=== PATIENT | female | born 1995 | race Caucasian/White ===

== ENCOUNTER → 2019-08-07 10:21 | Outpatient (CLI) | payer BC, SELFPAY ==
[2019-08-07 12:02] LABS: Absolute Lymphocyte Count 1.78 X10^3/uL (0.83-4.51); Absolute Neutrophil Count 4.6 X10^3/uL (2.0-7.7); Basophil# 0.02 X10^3/uL; Basophil% 0.3 % (0-1); Eosinophil# 0.11 X10^3/uL; Eosinophils% 1.6 % (0-5); Hematocrit 39.5 % (37-47); Hemoglobin 12.7 g/dL (12.0-15.0); Lymphocyte # 1.78 X10^3/ul (4.0); Lymphocyte % 25.4 % (19-41); Mean Corp Hgb Conc 32.2 g/dL (32-36); Mean Corpuscular Hgb 28.2 pg (27.0-32.0); Mean Corpuscular Volume 87.8 fL (81-99); Mean Platelet Vol. 12.6 fl (6.2-12.0); Monocyte# 0.45 X10^3/uL; Monocyte% 6.4 % (0-10); NRBC Flagged by Analyzer 0 % (0-5); Neutrophil # 4.63 X10^3/uL (2.7-7.7); Platelet Count 274 K/mm3 (150-450); RBC Distribution Width CV 13.2 % (11.6-14.6); RBC Distribution Width SD 42.7 fl (35.1-43.9)
[2019-08-07 13:56] LABS: HIV - WCH Non-Reactive (Nonreactive); Hepatitis B Surface Antigen Non-Reactive (Nonreactive); Hepatitis C Antibody Non-Reactive (Nonreactive); Rubella IgG 83.8 IU/mL
[2019-08-14 02:23] LABS: Rapid Plasmin Reagin (RPR) NONREACTIVE (NONREACTIVE)
== END ==
LOC: LAB.FUTURE 10:27 → LAB 10:32
PROVIDERS: Referring Provider Obstetrics & Gynecology; Visit Provider Obstetrics & Gynecology
DX: Z34.01 Encounter for supervision of normal first pregnancy, first trimester (principal)
CPT/HCPCS: 36415; 85025; 86592; 86703; 86762; 86803; 86850; 86900; 86901; 87340

== ENCOUNTER → 2019-08-09 11:00 | Outpatient (CLI) | payer BC, SELFPAY ==
--- NOTE | 2019-08-09 10:32 | US_ITS ---
STUDY: FIRST TRIMESTER OBSTETRICAL ULTRASOUND REASON FOR EXAM: Female, 23 years old VAGINAL BLEEDING WITH CLOTS WITH X 1 DAY -- PATIENT STATES SHE HAD AN ULTRASOUND DONE AT [facility] ON SUNDAY THAT SHOWED A 7 WEEK WITH A HEARTBEAT LMP: 08/10/2019 TECHNIQUE: Transvaginal TECHNICAL QUALITY: Adequate. PRIOR ULTRASOUND: None. FINDINGS: There is no demonstrated intrauterine gestational sac. The uterus measures 9.1 x 6.0 x 4.2 cm. There is no demonstrated uterine fibroid. The cervix is mildly fluid-filled The right ovary measures 4.6 x 3.1 x 2.4 cm. There is no right ovarian cyst. There is no visualized right adnexal mass or complex lesion. The left ovary measures 3.0 x 3.6 x 1.9 cm. There is no left ovarian cyst. There is no visualized left adnexal mass or complex lesion. There is no fluid in the cul de sac. US/Transvaginal w/Preg US IMPRESSION: 1. No gestational sac/ identified; fluid in the cervical canal. 2. No adnexal masses. Electronically Signed: Kleber Bermudez MD (Brooks) at 12:12 EST , Service support ,
== END ==
PROVIDERS: Referring Provider Obstetrics & Gynecology; Visit Provider Obstetrics & Gynecology
DX: O20.9 Hemorrhage in early pregnancy, unspecified (principal); Z3A.00 Weeks of gestation of pregnancy not specified
CPT/HCPCS: 76817

== ENCOUNTER → 2019-12-31 08:48 | Outpatient (CLI) | payer BC, SELFPAY ==
[2019-12-31 09:35] LABS: Absolute Lymphocyte Count 1.69 X10^3/uL (0.83-4.51); Absolute Neutrophil Count 6.8 X10^3/uL (2.0-7.7); Basophil# 0.03 X10^3/uL; Basophil% 0.3 % (0-1); Eosinophil# 0.08 X10^3/uL; Eosinophils% 0.9 % (0-5); Hematocrit 37.5 % (37-47); Hemoglobin 12.3 g/dL (12.0-15.0); Lymphocyte # 1.69 X10^3/ul (4.0); Lymphocyte % 18.2 % (19-41); Mean Corp Hgb Conc 32.8 g/dL (32-36); Mean Corpuscular Hgb 28.3 pg (27.0-32.0); Mean Corpuscular Volume 86.2 fL (81-99); Mean Platelet Vol. 12.6 fl (6.2-12.0); Monocyte# 0.72 X10^3/uL; Monocyte% 7.7 % (0-10); NRBC Flagged by Analyzer 0 % (0-5); Neutrophil # 6.76 X10^3/uL (2.7-7.7); Neutrophil % 72.6 % (47-70); Platelet Count 271 K/mm3 (150-450); RBC Distribution Width CV 13.6 % (11.6-14.6); RBC Distribution Width SD 42.7 fl (35.1-43.9); Red Blood Count 4.35 M/mm3 (4.2-5.4); White Blood Count 9.3 K/mm3 (4.4-11.0)
[2019-12-31 10:48] LABS: HIV - WCH Non-Reactive (Nonreactive); Hepatitis B Surface Antigen Non-Reactive (Nonreactive); Hepatitis C Antibody Non-Reactive (Nonreactive); Rubella IgG 81.6 IU/mL
[2020-01-01 02:20] LABS: Rapid Plasmin Reagin (RPR) NONREACTIVE (NONREACTIVE)
== END ==
PROVIDERS: Referring Provider Obstetrics & Gynecology; Visit Provider Obstetrics & Gynecology
DX: Z34.81 Encounter for supervision of other normal pregnancy, first trimester (principal)
CPT/HCPCS: 36415; 85025; 86592; 86703; 86762; 86803; 86900; 86901; 87340

== ENCOUNTER → 2020-02-25 11:21 | Outpatient (CLI) | payer BC, SELFPAY | PROVIDERS: Referring Provider Obstetrics & Gynecology; Visit Provider Obstetrics & Gynecology | DX: Z34.82 Encounter for supervision of other normal pregnancy, second trimester (principal) | CPT/HCPCS: 36415; 86850 ==

== ENCOUNTER 2020-07-27 22:45 | Inpatient (IN) | payer BC, SELFPAY ==
[2020-07-27 23:02] VITALS: PULSE 100; TEMP 36.9; O2SAT 99
[2020-07-27 23:08] VITALS: BP 130/84; PULSE 115
[2020-07-27] MEDS: Lactated Ringers 1,000 ML 50 ML IV (23:10)
[2020-07-27 23:16] VITALS: BMI 38.5
[2020-07-27 23:44] LABS: Absolute Lymphocyte Count 1.97 X10^3/uL (0.83-4.51); Absolute Neutrophil Count 7.3 X10^3/uL (2.0-7.7); Basophil# 0.03 X10^3/uL; Basophil% 0.3 % (0-1); Eosinophil# 0.08 X10^3/uL; Eosinophils% 0.8 % (0-5); Hematocrit 34.6 % (37-47); Hemoglobin 11.1 g/dL (12.0-15.0); Lymphocyte # 1.97 X10^3/ul (4.0); Lymphocyte % 19.3 % (19-41); Mean Corp Hgb Conc 32.1 g/dL (32-36); Mean Corpuscular Hgb 25.3 pg (27.0-32.0); Mean Corpuscular Volume 78.8 fL (81-99); Mean Platelet Vol. 12.7 fl (6.2-12.0); Monocyte# 0.69 X10^3/uL; Monocyte% 6.8 % (0-10); NRBC Flagged by Analyzer 0 % (0-5); Neutrophil # 7.25 X10^3/uL (2.7-7.7); Neutrophil % 70.9 % (47-70); Platelet Count 209 K/mm3 (150-450); RBC Distribution Width CV 16.7 % (11.6-14.6); RBC Distribution Width SD 47.5 fl (35.1-43.9); Red Blood Count 4.39 M/mm3 (4.2-5.4); White Blood Count 10.2 K/mm3 (4.4-11.0)
[2020-07-28] VITALS (58 sets, daily range): BP systolic 84–129; BP diastolic 47–86; PULSE 77–109; RESP 16; TEMP 36.3–37.6; O2SAT 93–100
[2020-07-28] MEDS: Oxytocin 30 units/NS 500 ml 30 UNITS/500 ML IV.SOLN IV (00:25)
[2020-07-28] MEDS: Lactated Ringers 500 ML 999 ML IV ×3 (05:00→13:10)
[2020-07-28] MEDS: fentaNYL-bupivacaine (epidural) 100 ML BAG EPIDURAL ×3 (06:30→17:28)
[2020-07-28] MEDS: Ondansetron 4 MG/2 ML Vial IV (08:22)
--- NOTE | 2020-07-28 08:34 | PCM.HP.OB ---
- Problem List (1) 39 weeks gestation of Status: Acute (2) Elective induction of labor planned Status: Acute History Date of Admission: 07/28/20 Final MAL: 08/02/20 Gestational age: 39 Weeks and 2 Days History of this : This is a 24 year-old, G 2, P 0010, at 39 weeks gestational age who presents for scheduled IOl at 39 weeks. Growth US at 36 week gestation- EFW 3767g, 98%, 8lb 5oz Medical History: Medical History (Last Updated 07/28/20 @ 08:[address] iLly Hutchison DO) History of miscarriage Z87.59 Surgical History: Surgical History (Last Updated 07/28/20 @ 08:[address] Lily Hutchison DO) History of tonsillectomy Z90.89 Allergies No Known Allergies Allergy (Verified 07/27/20 23:43) Home Medications: Home Medications Docusate Sodium [Stool Softener] 100 mg PO DAILY PRN PRN 07/27/20 Ferrous Sulfate [Iron] 325 mg PO DAILY 07/27/20 Vits [Prenatabs FA] 1 tab PO DAILY 07/27/20 Smoking Status: Never smoker Number of Fetus(es): 1 NST - FHR Rate Baby A FHR Category:: Category I Uterine Activity:: Inadequate ctx's currently on pit 12 mu/min History Past Pregnancies: Past Pregnancies Delivery Date Name GA/ Weeks Outcome Route Wt Sex Labor Length Anesthesia Delivery Location Provider FOB Labs: GBS neg See [facility] record Expected Infant Delivery Method: Spontaneous Vaginal Physical Exam Vitals: Vital Signs Temp Pulse BP Pulse Ox 97.6 F L 101 H 95/52 L 98 07/28/20 07:15 07/28/20 08:12 07/28/20 08:10 07/28/20 08:12 General: Alert, No apparent distress HEENT: Atraumatic Abdomen: Gravid Extremities:: No edema Neurological: Neuro grossly intact GREASE RENDERER: Normal external genitalia Estimated gestational size: Large for gestational age Presentation: Cephalic Cervix Dilation (cm): 4 Station: -2 Effacement (%): 90 Assessment/Plan All Active Problems 39 weeks gestation of (Acute) Elective induction of labor planned (Acute) This is a 24 year-old, G 2, P 0010, at 39 weeks gestational age who presents for scheduled elective IOL. - EFW 8lb 5oz at 36 wk gestation. Pelvis adequate. Favorable cervix at time of induction. Discussed r/b/a to IOL with pt. Discussed option for primary section. Pt desires elective 39 wk IOL. Reviewed risk of shoulder dystocia - Routine intrapartum care - GBS negative - Epidural for pain control - Pitocin gtt per protocol - AROM performed for scant bloody fluid and IUPC placed
--- NOTE | 2020-07-28 12:17 | PCM.PN.BLA ---
Progress Note RN had replaced IUP earlier in the day and membranes not palpated at that time. On most recent cervical exam, RN called noting she can now feel membranes. Cvx unchanged on exam and BB palpated. AROM performed for clear fluid. New IUPC placed. Cont to titrate pitocin. STROKE Vital Signs/Narrative: Vital Signs Temp Pulse BP Pulse Ox 07/28/20 12:11 99 103/59 L 07/28/20 11:20 82 100 07/28/20 11:15 97.8 F 95 99 07/28/20 11:14 91/54 L 07/28/20 10:07 103 H 98/63 07/28/20 10:06 97.8 F
[2020-07-28] MEDS: Lactated Ringers 1,000 ML 200 ML IV ×2 (13:18→19:22)
--- NOTE | 2020-07-28 19:26 | PCM.PN.BLA ---
Progress Note Delayed entry. Pt complete and pushing. Category 2 tracing. Good descent with pushing. Cont care and anticipate vaginal delivery. STROKE Vital Signs/Narrative: Vital Signs Temp Pulse BP Pulse Ox 07/28/20 18:31 98.1 F 81 117/59 L 99 07/28/20 17:24 98.4 F 86 107/55 L 99 07/28/20 16:15 98.4 F 101 H 112/78 99
--- NOTE | 2020-07-28 22:08 | PCM.PN.BLA ---
Progress Note Patient has been pushing for about 4 hours with no change in station. Good maternal effort. Unable to perform VAVD at this time given station. Recommend primary section for arrest of descent and suspected macrosomia. Discussed r/b/a of section and pt is agreeable. STROKE Vital Signs/Narrative: Vital Signs Temp Pulse Resp BP Pulse Ox 07/28/20 22:05 86 99 07/28/20 22:04 121/63 H 07/28/20 22:02 99.7 F H 78 16 121/63 H 99 07/28/20 21:02 99.0 F 07/28/20 20:43 84 114/57 L 07/28/20 20:42 99.7 F H 07/28/20 19:30 80 116/65 07/28/20 19:29 98.9 F 07/28/20 18:31 98.1 F 81 117/59 L 99
[2020-07-28] MEDS: Sodium Citrate/Citric Acid 30 ML UDC PO (22:10)
[2020-07-28] MEDS: Acetaminophen 500 MG Tablet PO (22:18)
[2020-07-29] VITALS (26 sets, daily range): BP systolic 94–121; BP diastolic 51–72; PULSE 67–95; RESP 14–20; TEMP 36.2–37.2; O2SAT 94–100
--- NOTE | 2020-07-29 00:44 | OP.PCM_ITS ---
Problem List (1) 39 weeks gestation of Status: Acute (2) Elective induction of labor planned Status: Acute Report of Operation Date of Procedure: 07/28/20 Pre-Operative Diagnosis: 39 week gestation, elective IOL for suspected macrosomia, arrest of descent Post-Operative Diagnosis: As above Surgery/Procedure Performed:: PLTCS via pfannenstiel incision Description of Surgical Findings:: Normal appearing uterus, bilateral tubes, bilateral ovaries. formulator compounder: Marcos Robles formulator compounder: Polina Marquez - Present after closure of hysterotomy to assess the right cervical extension for bleeding. She inspected the hysterotomy and the cervical extension, and then left the OR once she felt it was hemostatic. Type of Anesthesia:: Epidural Special Medications: See anesthesia record. Pt received lidocaine at incision site, as well as Ketamine. Specimen's removed: Placenta Drains: Andrea Estimated Blood Loss (mL): 1500 L Fluids Replaced: 1850 L Description of Procedure: Patient was complete and pushing for about 4 hours with no significant change in station. Proceeded with a primary section for arrest of descent and suspected macrosomia. She was taken to the operating room where she was prepped and draped in the dorsal position with a leftward tilt. Epidural anesthesia was not adequate. The patient had some sensation of pain along her right side. 1% lidocaine was injected along the incision site. Anesthesia gave ketamine prior to the start of the procedure. Once anesthesia felt comfortable proceeding, a Pfannenstiel skin incision was made with a scalpel. The incision was carried down with the Bovie to the underlying layer of fascia. The fascia was incised in the midline. The fascia was extended laterally using Christie scissors. The fascia was dissected off of the rectus muscles using a combination of sharp and blunt dissection. The rectus muscles were in the midline. The peritoneum was entered sharply with good visualization of the bladder. The peritoneum was extended bluntly. A low transverse incision was made on the uterus with a scalpel with good visualization of the bladder. The nurse provided a hand from below. The infant head was elevated out of the pelvis to the hysterotomy. The head followed by shoulders and body were delivered without any force or delay. The cord was clamped and cut immediately. The infant was handed off to the nursery staff. The placenta was delivered with manual extraction. The uterus was exteriorized. The uterus was cleared of all clot and debris. The hysterotomy was noted to have a right-sided cervical extension. 3-0 Vicryl was used to close the hysterotomy in a running locked fashion. Several additional [id number] sutures were placed for hemostasis. Using methylene blue, the bladder was backfilled with ~250 cc of methylene blue combined with normal saline. The bladder was noted to be intact. The bladder was then drained. The right cervical extension was felt to still be bleeding. An additional [id number] suture was placed. Felicia and pressure was placed. At this point Dr. Sorenson was called for a second opinion. She was present and inspected the hysterotomy and the right cervical extension with the uterus exteriorized. The uterus was then placed back into the abdomen, and she examined the hysterotomy and extension with the uterus back in the abdomen. She felt good hemostasis was obtained. She then left the OR. FloSeal was then placed along the right cervical extension. Felicia was placed along the rest of the hysterotomy. The fascia was then closed with Vicryl in a running fashion. The subcutaneous space was irrigated. The subcutaneous space was reapproximated with 3-0 Vicryl in a running fashion. The skin was closed with 4-0 Monocryl in a subcuticular fashion. Steri-Strips and a dressing were placed. Instrument, sponge, needle counts were correct. Patient was taken to the recovery room in stable condition. Grafts/Implants Used: None - Complications None - Admit VTE Documentation VTE Present on Admission: No VTE Mechan Device Prophylaxis: SCD's VTE Pharm Prophylaxis ordered?: Yes Delivery Classification: DEVI Gestational age: 39 week gestation Type of Anesthesia:: Epidural - see anesthesia record Indications for : Arrrest of Descent Drain: Andrea to straight drain Cord Entanglement: None Cord Vessel Description: 3 Vessels Infant Gender: Male (1 minute): 8 (5 minute): 9 Delayed cord clamping: No Antibiotic Given: Ancef 3 grams IV x1, Zithromax 500 mg/5 mL X1 Pt instructed on risks of surgery: Bleeding, Infection, Need for Future C- Sections, Injury to surrounding structure(s) including bowel and bladder Complications: None
[2020-07-29] MEDS: Oxytocin 30 units/NS 500 ml 30 UNITS/500 ML IV.SOLN 167 UNITS IV (01:00)
--- NOTE | 2020-07-29 03:05 | NURSING ---
Epidural catheter removed. Blue tip intact.
[2020-07-29] MEDS: Acetaminophen 500 MG Tablet 1000 MG PO ×4 (03:57→22:19)
[2020-07-29] MEDS: Lactated Ringers 1,000 ML 100 ML IV (04:04)
[2020-07-29] MEDS: Ketorolac 30 MG/ML Syringe IV ×3 (05:58→18:28)
[2020-07-29] MEDS: 0.9% Saline Lock 10 ML Syringe IV ×4 (05:59→18:29)
[2020-07-29 07:21] LABS: Absolute Lymphocyte Count 0.93 X10^3/uL (0.83-4.51); Absolute Neutrophil Count 14.6 X10^3/uL (2.0-7.7); Basophil# 0.03 X10^3/uL; Basophil% 0.2 % (0-1); Hematocrit 27.8 % (37-47); Hemoglobin 8.9 g/dL (12.0-15.0); Lymphocyte # 0.93 X10^3/ul (4.0); Lymphocyte % 5.7 % (19-41); Mean Corpuscular Hgb 25.4 pg (27.0-32.0); Mean Corpuscular Volume 79.4 fL (81-99); Mean Platelet Vol. 13.5 fl (6.2-12.0); Monocyte# 0.73 X10^3/uL; Monocyte% 4.4 % (0-10); NRBC Flagged by Analyzer 0 % (0-5); Neutrophil # 14.61 X10^3/uL (2.7-7.7); Platelet Count 181 K/mm3 (150-450); RBC Distribution Width CV 16.6 % (11.6-14.6); RBC Distribution Width SD 47.1 fl (35.1-43.9); White Blood Count 16.4 K/mm3 (4.4-11.0)
--- NOTE | 2020-07-29 07:28 | PCM.PN.OB ---
Patient Problems: Active and Suspected Problems (Last Updated 07/28/20 @ 08:[address] Lily Hutchison, DO) 39 weeks gestation of (Acute) Elective induction of labor planned (Acute) Subjective: Doing well. Pain well controlled. Andrea in place. Has not ambulated yet. Denies lightheadedness, dizziness, chest pain, shortness of breath, leg pain. Lochia normal. Breast-feeding without complaints. - Physical Exam Vitals/I&O's: Vital Signs Temp Pulse Resp BP Pulse Ox 98.2 F 94 16 94/51 L 97 07/29/20 06:52 07/29/20 06:53 07/29/20 06:53 07/29/20 06:52 07/29/20 06:53 Oxygen Delivery Method Room Air Weight: 275 lb 12.772 oz Body Mass Index (BMI) 38.5 Intake and Output for Last 24 Hours 07/27/20 07/28/20 07/29/20 23:59 23:59 23:59 Intake Total 5306.66 / 5306.66 2355 / 2355 Output Total 1200 / 1200 1070 / 1070 Balance 4106.66 / 4106.66 1285 / 1285 General: Alert, No apparent distress HEENT: Atraumatic Abdomen: Soft, Non Tender, Non-Distended Extremities: No edema Skin: No rashes Neurological: Neuro grossly intact Psych/Mental Status: Normal Affect, Appropriate Laboratory Results 07/29/20 06:10: WBC 16.4 H, RBC 3.50 L, Hgb 8.9 L, Hct 27.8 L, MCV 79.4 L, MCH 25.4 L, MCHC 32.0, RDW Std Deviation 47.1 H, RDW Coeff of Tawana 16.6 H, Plt Count 181, MPV 13.5 H, Immature Gran % (Auto) 0.700, Neut % (Auto) 89.0 H, Lymph % (Auto) 5.7 L, Calhoun % (Auto) 4.4, Eos % (Auto) 0.0, Baso % (Auto) 0.2, Absolute Neuts (auto) 14.6 H, Absolute Lymphs (auto) 0.93, Nucleated RBC % 0 Current Medications Acetaminophen (Acetaminophen 500 Mg Tablet) 1,000 mg PO Q6H [facility] Last Admin: 07/29/20 03:57 Dose: 1,000 mg Documented by: Bisacodyl (Bisacodyl 10 Mg Suppository) 10 mg RECTAL UD PRN PRN Reason: If no BM Diphenhydramine HCl (Diphenhydramine 25 Mg Capsule) 25 mg PO Q6H PRN PRN PRN Reason: ITCHING Stop: 07/30/20 02:59 Enoxaparin Sodium (Enoxaparin 40 Mg/0.4 Ml Syringe) 40 mg SC DAILY [facility] Hydrocortisone (Hydrocortisone 2.5% Crm) 1 applic TOPICAL TID PRN PRN; Protocol PRN Reason: Discomfort Lactated Ringer's () 1,000 mls @ 100 mls/hr IV .Q10H [facility] Last Admin: 07/29/20 04:04 Dose: 100 mls/hr Documented by: Ibuprofen (Ibuprofen 600 Mg Tablet) 600 mg PO Q6H [facility] Ketorolac Tromethamine (Ketorolac 30 Mg/Ml Syringe) 30 mg IV Q6H [facility] Stop: 07/30/20 00:31 Last Admin: 07/29/20 05:58 Dose: 30 mg Documented by: Methylergonovine Maleate (Methylergonovine 0.2 Mg/Ml Ampul) 0.2 mg IM X1 PRN PRN Reason: Uterine Atony Nalbuphine HCl (Nalbuphine 10 Mg/Ml Ampul) 5 mg IV Q3H PRN PRN PRN Reason: ITCHING Stop: 07/30/20 02:59 Naloxone HCl (Naloxone 0.4 Mg/Ml Syringe) 0.02 mg IV Q1M PRN PRN Reason: RR <10 and pt unresponsive Ondansetron HCl (Ondansetron 4 Mg/2 Ml Vial) 4 mg IV Q4H PRN PRN PRN Reason: Nausea Oxycodone HCl (Oxycodone 5 Mg Tablet) 5 - 10 mg PO Q4H PRN PRN PRN Reason: Pain Score 4-10 Prochlorperazine Edisylate (Prochlorperazine 10 Mg/2 Ml Vial) 10 mg IV Q6H PRN PRN PRN Reason: NAUSEA Senna/Docusate Sodium (Senna/Docusate Sodium 1 Tablet) 0 tablet PO DAILY [facility] Simethicone (Simethicone 80 Mg Tablet) 80 mg PO PCHS PRN PRN Reason: Indigestion/stomach pain Sodium Chloride (0.9% Saline Lock 10 Ml Syringe) 5 - 15 ml IV UD PRN PRN Reason: SALINE FLUSH Last Admin: 07/29/20 05:59 Dose: 10 ml Documented by: Medical Necessity - Tobacco Use Smoking Status: Never smoker Assessment/Plan All Active Problems (Last Updated 07/28/20 @ 08:[address] Lily Hutchison, DO) 39 weeks gestation of (Acute) Elective induction of labor planned (Acute) POD#1 s/p PLTCS for arrest of descent - Doing well. Pain well controlled - HDS. Hgb 8.9. Will recheck in AM. No symptoms of anemia - - Dispo: Routine post op care
[2020-07-29] MEDS: Senna/Docusate Sodium 1 Tablet PO (09:56)
[2020-07-29] MEDS: Enoxaparin 40 MG/0.4 ML Syringe SC (09:56)
--- NOTE | 2020-07-29 21:18 | NURSING ---
MOB and FOB both CPR certified. Verbalized understanding to this RN and declined to watch CPR video.
[2020-07-30] MEDS: Ketorolac 30 MG/ML Syringe IV (00:14)
[2020-07-30] MEDS: 0.9% Saline Lock 10 ML Syringe IV (00:15)
[2020-07-30 02:15] VITALS: BP 102/50; PULSE 80; RESP 16; TEMP 36.9
[2020-07-30] MEDS: Acetaminophen 500 MG Tablet 1000 MG PO ×3 (04:12→16:39)
[2020-07-30] MEDS: Ibuprofen 600 MG Tablet PO ×2 (06:14→12:13)
[2020-07-30 06:25] LABS: Hematocrit 24.6 % (37-47); Hemoglobin 7.9 g/dL (12.0-15.0); Mean Corp Hgb Conc 32.1 g/dL (32-36); Mean Corpuscular Hgb 25.6 pg (27.0-32.0); Mean Corpuscular Volume 79.6 fL (81-99); Mean Platelet Vol. 12.4 fl (6.2-12.0); Platelet Count 178 K/mm3 (150-450); RBC Distribution Width CV 16.9 % (11.6-14.6); RBC Distribution Width SD 48.4 fl (35.1-43.9); Red Blood Count 3.09 M/mm3 (4.2-5.4); White Blood Count 11.1 K/mm3 (4.4-11.0)
[2020-07-30] MEDS: Senna/Docusate Sodium 1 Tablet PO (09:54)
[2020-07-30] MEDS: Enoxaparin 40 MG/0.4 ML Syringe SC (09:55)
--- NOTE | 2020-07-30 10:01 | PN.OBGYN_ITS ---
Patient Problems: Active and Suspected Problems (Last Updated 07/28/20 @ 08:[address] Lily Hutchison, DO) 39 weeks gestation of (Acute) Elective induction of labor planned (Acute) Subjective: infant without difficult. Denies any SOB, chest pain, dizziness. Ambulating and voiding. Objective: HGB 7.9 down from 8.9 - Physical Exam Vitals/I&O's: Vital Signs Temp Pulse Resp BP Pulse Ox 98.5 F 80 16 102/50 L 97 07/30/20 02:15 07/30/20 02:15 07/30/20 02:15 07/30/20 02:15 07/29/20 22:18 Oxygen Delivery Method Room Air Weight: 275 lb 12.772 oz Body Mass Index (BMI) 38.5 Intake and Output for Last 24 Hours 07/28/20 07/29/20 07/30/20 23:59 23:59 23:59 Intake Total 5306.66 / 5306.66 2768.33 / 2768.33 Output Total 1200 / 1200 3670 / 3670 Balance 4106.66 / 4106.66 -901.67 / -901.67 General: Alert Lungs: Normal air movement Cardiovascular: Regular rate Abdomen: Passing Flatus Laboratory Results 07/30/20 06:19: WBC 11.1 H, RBC 3.09 L, Hgb 7.9 L, Hct 24.6 L, MCV 79.6 L, MCH 25.6 L, MCHC 32.1, RDW Std Deviation 48.4 H, RDW Coeff of Tawana 16.9 H, Plt Count 178, MPV 12.4 H Current Medications Acetaminophen (Acetaminophen 500 Mg Tablet) 1,000 mg PO Q6H [facility] Last Admin: 07/30/20 09:57 Dose: 1,000 mg Documented by: Bisacodyl (Bisacodyl 10 Mg Suppository) 10 mg RECTAL UD PRN PRN Reason: If no BM Enoxaparin Sodium (Enoxaparin 40 Mg/0.4 Ml Syringe) 40 mg SC DAILY [facility] Last Admin: 07/30/20 09:55 Dose: 40 mg Documented by: Hydrocortisone (Hydrocortisone 2.5% Crm) 1 applic TOPICAL TID PRN PRN; Protocol PRN Reason: Discomfort Ibuprofen (Ibuprofen 600 Mg Tablet) 600 mg PO Q6H [facility] Last Admin: 07/30/20 06:14 Dose: 600 mg Documented by: Methylergonovine Maleate (Methylergonovine 0.2 Mg/Ml Ampul) 0.2 mg IM X1 PRN PRN Reason: Uterine Atony Naloxone HCl (Naloxone 0.4 Mg/Ml Syringe) 0.02 mg IV Q1M PRN PRN Reason: RR <10 and pt unresponsive Ondansetron HCl (Ondansetron 4 Mg/2 Ml Vial) 4 mg IV Q4H PRN PRN PRN Reason: Nausea Oxycodone HCl (Oxycodone 5 Mg Tablet) 5 - 10 mg PO Q4H PRN PRN PRN Reason: Pain Score 4-10 Prochlorperazine Edisylate (Prochlorperazine 10 Mg/2 Ml Vial) 10 mg IV Q6H PRN PRN PRN Reason: NAUSEA Senna/Docusate Sodium (Senna/Docusate Sodium 1 Tablet) 0 tablet PO DAILY [facility] Last Admin: 07/30/20 09:54 Dose: 2 tablet Documented by: Simethicone (Simethicone 80 Mg Tablet) 80 mg PO PCHS PRN PRN Reason: Indigestion/stomach pain Sodium Chloride (0.9% Saline Lock 10 Ml Syringe) 5 - 15 ml IV UD PRN PRN Reason: SALINE FLUSH Last Admin: 07/30/20 00:15 Dose: 10 ml Documented by: Medical Necessity - Tobacco Use Smoking Status: Never smoker Assessment/Plan All Active Problems (Last Updated 07/28/20 @ 08:[address] Lily Hutchison, DO) 39 weeks gestation of (Acute) Elective induction of labor planned (Acute) Post op #1 Primary C/S Repeat CBC at 1400 Routine care support Anticipate discharge home later after lab results
[2020-07-30 10:05] VITALS: BP 115/68; PULSE 81; RESP 16; TEMP 36.4; O2SAT 98
[2020-07-30 15:02] VITALS: BP 110/64; PULSE 70; RESP 16; TEMP 36.5; O2SAT 98
[2020-07-30 15:04] LABS: Hematocrit 25.5 % (37-47); Hemoglobin 8.1 g/dL (12.0-15.0); Mean Corp Hgb Conc 31.8 g/dL (32-36); Mean Corpuscular Hgb 25.7 pg (27.0-32.0); Mean Platelet Vol. 12.8 fl (6.2-12.0); Platelet Count 196 K/mm3 (150-450); RBC Distribution Width CV 17.2 % (11.6-14.6); RBC Distribution Width SD 50.6 fl (35.1-43.9); Red Blood Count 3.15 M/mm3 (4.2-5.4); White Blood Count 10.4 K/mm3 (4.4-11.0)
--- NOTE | 2020-07-30 16:34 | DCINST_ITS ---
Discharge Diet: No Restrictions May resume sexual activity in: 6-8 weeks Additional Instructions: If you experience any of the following, contact your healthcare provider. * Bleeding that soaks a pad every hour for 2 hours * Fever 100.4 or higher * Unrelieved incision or abdominal pain * Swelling, redness, discharge or bleeding from your incision or episiotomy site * Your incision begins to separate * Problems urinating (including inability to urinate or burning while urinating). * Visual changes * Severe headache * Flu-like symptoms * Pain or redness in one of both of your breasts * Pain, warmth, tenderness or swelling in your legs, especially the calf area * Frequent nausea and vomiting * Symptoms of depression or anxiety If you experience any of the following, call 911 or go to the nearest Emergency Room. * Chest pain * Problems breathing * Seizure activity * Partial or complete paralysis of a body part, slurred speech, weakness or drooping of the face, or a sudden inability to walk or hold your balance Allergies/Adverse Reactions: Allergies No Known Allergies Allergy (Verified 07/27/20 23:43) Medications to take at Discharge Docusate Sodium [Stool Softener] 100 mg PO DAILY PRN PRN 07/27/20 Ferrous Sulfate [Iron] 325 mg PO DAILY 07/27/20 Vits [Prenatabs FA ] 1 tab PO DAILY 07/27/20 Follow-Up: Call to make an appointment with your doctor for an incision check in 1-2 weeks. You will also need a 6 week post- follow up appointment. Test results from this visit will be discussed in further detail at your follow- up appointment, if applicable. Primary Care Physician: Care Physician,No Primary [Primary Care Provider] -
--- NOTE | 2020-07-30 16:34 | PCM.DCCSEC ---
Discharge Diet: No Restrictions May resume sexual activity in: 6-8 weeks Additional Instructions: If you experience any of the following, contact your healthcare provider. Bleeding that soaks a pad every hour for 2 hours Fever 100.4 or higher Unrelieved incision or abdominal pain Swelling, redness, discharge or bleeding from your incision or episiotomy site Your incision begins to separate Problems urinating (including inability to urinate or burning while urinating). Visual changes Severe headache Flu-like symptoms Pain or redness in one of both of your breasts Pain, warmth, tenderness or swelling in your legs, especially the calf area Frequent nausea and vomiting Symptoms of depression or anxiety If you experience any of the following, call 911 or go to the nearest Emergency Room. Chest pain Problems breathing Seizure activity Partial or complete paralysis of a body part, slurred speech, weakness or drooping of the face, or a sudden inability to walk or hold your balance Allergies/Adverse Reactions: Allergies No Known Allergies Allergy (Verified 07/27/20 23:43) Medications to take at Discharge Docusate Sodium [Stool Softener] 100 mg PO DAILY PRN PRN 07/27/20 Ferrous Sulfate [Iron] 325 mg PO DAILY 07/27/20 Vits [Prenatabs FA ] 1 tab PO DAILY 07/27/20 Follow-Up: Call to make an appointment with your doctor for an incision check in 1-2 weeks. You will also need a 6 week post- follow up appointment. Test results from this visit will be discussed in further detail at your follow-up appointment, if applicable. Primary Care Physician: Care Physician,No Primary [Primary Care Provider] -
--- NOTE | 2020-07-30 16:36 | PCM.DC.SUM ---
Discharge Date and Diagnosis - Problem List Patient Problems: Active and Suspected Problems (Last Updated 07/28/20 @ 08:[address] Lily Hutchison DO) 39 weeks gestation of (Acute) Elective induction of labor planned (Acute) Date of Admission: 07/28/20 Date of Discharge: 07/30/20 - Primary Discharge Diagnosis Acute Problems: Active Problems (Last Updated 07/28/20 @ 08:[address] Lily Hutchison DO) 39 weeks gestation of (Acute) Elective induction of labor planned (Acute) Hospital Course and Treatment Summary of Care Provided: The patient is a 24 year old F with primary section for arrest of decent. Hospital course was uneventful. Patient Problems: Active and Suspected Problems (Last Updated 07/28/20 @ 08:[address] Lily Hutchison DO) 39 weeks gestation of (Acute) Elective induction of labor planned (Acute) - Physical Exam Vitals/I&O's: Vital Signs Temp Pulse Resp BP Pulse Ox 97.7 F L 70 16 110/64 98 07/30/20 15:02 07/30/20 15:02 07/30/20 15:02 07/30/20 15:02 07/30/20 15:02 Oxygen Delivery Method Room Air Weight: 275 lb 12.772 oz Body Mass Index (BMI) 38.5 Intake and Output for Last 24 Hours 07/28/20 07/29/20 07/30/20 23:59 23:59 23:59 Intake Total 5306.66 / 5306.66 2768.33 / 2768.33 Output Total 1200 / 1200 3670 / 3670 Balance 4106.66 / 4106.66 -901.67 / -901.67 Laboratory Results 07/30/20 06:19: WBC 11.1 H, RBC 3.09 L, Hgb 7.9 L, Hct 24.6 L, MCV 79.6 L, MCH 25.6 L, MCHC 32.1, RDW Std Deviation 48.4 H, RDW Coeff of Tawana 16.9 H, Plt Count 178, MPV 12.4 H 07/30/20 14:35: WBC 10.4, RBC 3.15 L, Hgb 8.1 L, Hct 25.5 L, MCV 81.0, MCH 25.7 L, MCHC 31.8 L, RDW Std Deviation 50.6 H, RDW Coeff of Tawana 17.2 H, Plt Count 196, MPV 12.8 H Current Medications Acetaminophen (Acetaminophen 500 Mg Tablet) 1,000 mg PO Q6H [facility] Last Admin: 07/30/20 09:57 Dose: 1,000 mg Documented by: Bisacodyl (Bisacodyl 10 Mg Suppository) 10 mg RECTAL UD PRN PRN Reason: If no BM Enoxaparin Sodium (Enoxaparin 40 Mg/0.4 Ml Syringe) 40 mg SC DAILY [facility] Last Admin: 07/30/20 09:55 Dose: 40 mg Documented by: Hydrocortisone (Hydrocortisone 2.5% Crm) 1 applic TOPICAL TID PRN PRN; Protocol PRN Reason: Discomfort Ibuprofen (Ibuprofen 600 Mg Tablet) 600 mg PO Q6H [facility] Last Admin: 07/30/20 12:13 Dose: 600 mg Documented by: Methylergonovine Maleate (Methylergonovine 0.2 Mg/Ml Ampul) 0.2 mg IM X1 PRN PRN Reason: Uterine Atony Naloxone HCl (Naloxone 0.4 Mg/Ml Syringe) 0.02 mg IV Q1M PRN PRN Reason: RR <10 and pt unresponsive Ondansetron HCl (Ondansetron 4 Mg/2 Ml Vial) 4 mg IV Q4H PRN PRN PRN Reason: Nausea Oxycodone HCl (Oxycodone 5 Mg Tablet) 5 - 10 mg PO Q4H PRN PRN PRN Reason: Pain Score 4-10 Prochlorperazine Edisylate (Prochlorperazine 10 Mg/2 Ml Vial) 10 mg IV Q6H PRN PRN PRN Reason: NAUSEA Senna/Docusate Sodium (Senna/Docusate Sodium 1 Tablet) 0 tablet PO DAILY [facility] Last Admin: 07/30/20 09:54 Dose: 2 tablet Documented by: Simethicone (Simethicone 80 Mg Tablet) 80 mg PO PCHS PRN PRN Reason: Indigestion/stomach pain Sodium Chloride (0.9% Saline Lock 10 Ml Syringe) 5 - 15 ml IV UD PRN PRN Reason: SALINE FLUSH Last Admin: 07/30/20 00:15 Dose: 10 ml Documented by: Discharge Diet: No Restrictions May resume sexual activity in: 6-8 weeks Home Medications: Medications to take at Discharge Docusate Sodium [Stool Softener] 100 mg PO DAILY PRN PRN 07/27/20 Ferrous Sulfate [Iron] 325 mg PO DAILY 07/27/20 Vits [Prenatabs FA ] 1 tab PO DAILY 07/27/20 Primary Care Physician: Care Physician,No Primary [Primary Care Provider] - Medical Necessity - Tobacco Use Smoking Status: Never smoker Meaningful Use Info Meaningful Use Diagnoses (Choose all that apply): None applicable
--- NOTE | 2020-07-30 17:31 | NURSING ---
At 1715, patient called this RN and informed that Dr. Hutchison just talked with her and ok with her going home. Pt states she is ok with discharge and ready to go home whenever possible.
== END 2020-07-30 17:25 | disposition home or self-care (01) | DRG 788 ==
PROVIDERS: Advanced Practice Midwife; Obstetrics & Gynecology; Admitting Provider Obstetrics & Gynecology; Visit Provider Obstetrics & Gynecology
DX: O62.1 Secondary uterine inertia (principal); O36.63X0 Maternal care for excessive fetal growth, third trimester, not applicable or unspecified; Z87.59 Personal history of other complications of pregnancy, childbirth and the puerperium; Z3A.39 39 weeks gestation of pregnancy; Z37.0 Single live birth
CPT/HCPCS: 59025; 59050; 85025; 85027; 86850; 86900; 86901; 99218; J7120; A4216; G0378; J2405; Q9968

== ENCOUNTER → 2020-09-08 15:38 | Outpatient (CLI) | payer BC, SELFPAY ==
[2020-09-08 17:30] LABS: Hematocrit 37.8 % (37-47); Hemoglobin 11.7 g/dL (12.0-15.0); Mean Corpuscular Hgb 25.1 pg (27.0-32.0); Mean Corpuscular Volume 81.1 fL (81-99); Mean Platelet Vol. 13.1 fl (6.2-12.0); Platelet Count 254 K/mm3 (150-450); RBC Distribution Width SD 47.3 fl (35.1-43.9); Red Blood Count 4.66 M/mm3 (4.2-5.4); White Blood Count 6.7 K/mm3 (4.4-11.0)
== END ==
PROVIDERS: Visit Provider Obstetrics & Gynecology
DX: Z39.2 Encounter for routine postpartum follow-up (principal); O90.81 Anemia of the puerperium
CPT/HCPCS: 36415; 85027

== ENCOUNTER → 2022-01-06 | Outpatient (CLI) | payer OTHER, SELFPAY ==
[2022-01-06 14:47] LABS: Hematocrit 36.7 % (37-47); Hemoglobin 12.1 g/dL (12.0-15.0); Mean Corpuscular Hgb 28.1 pg (27.0-32.0); Mean Corpuscular Volume 85.2 fL (81-99); Mean Platelet Vol. 12.3 fl (6.2-12.0); Platelet Count 251 K/mm3 (150-450); RBC Distribution Width SD 43.6 fl (35.1-43.9); Red Blood Count 4.31 M/mm3 (4.2-5.4)
[2022-01-06 16:00] LABS: HIV - WCH Non-Reactive (Nonreactive); Hepatitis B Surface Antigen Non-Reactive (Nonreactive); Rubella IgG Reactive (Nonreactive); Syphilis Antibodies Non-reactive
== END | disposition home or self-care (01) ==
PROVIDERS: Referring Provider Obstetrics & Gynecology; Visit Provider Obstetrics & Gynecology
DX: Z34.81 Encounter for supervision of other normal pregnancy, first trimester (principal)
CPT/HCPCS: 36415; 85027; 86703; 86762; 86780; 86803; 86804; 86850; 86900; 86901; 87340

== ENCOUNTER 2022-07-17 15:07 | Outpatient (CLI) | payer OTHER, SELFPAY ==
[2022-07-17] VITALS (7 sets, daily range): BP systolic 119–135; BP diastolic 72–84; PULSE 83–91; BMI 39.6
[2022-07-17 16:03] LABS: Hemoglobin 11.3 g/dL (12.0-15.0); Mean Corp Hgb Conc 31.4 g/dL (32-36); Mean Corpuscular Hgb 25.7 pg (27.0-32.0); Mean Corpuscular Volume 81.8 fL (81-99); Mean Platelet Vol. 12.1 fl (6.2-12.0); POSITIVE MORPHOLOGY YES; Platelet Count 159 K/mm3 (150-450); RBC Distribution Width CV 23.7 % (11.6-14.6); RBC Distribution Width SD 69.1 fl (35.1-43.9); White Blood Count 8.8 K/mm3 (4.4-11.0)
[2022-07-17 16:04] LABS: POSITIVE DIFFERENTIAL YES; Scan Indicated on CBC? Y/N YES- FLAGS NOTED
[2022-07-17 16:22] LABS: Protein, Urine (Random) 33.3 mg/dL (<11.9); Protein:Creat Ratio 230 mg/g CRE (0-200)
[2022-07-17 17:00] LABS: AST(SGOT) 17 U/L (15-37); Alanine Aminotransfer ALT/SGPT 16 U/L (13-56); Creatinine, Serum 0.62 mg/dL (0.55-1.02); EST Glomerular Filtration Rate 121 mL/min (>60); Est Glom Filt Rate - Afr Amer 146 mL/min (>60); Estimated Creatinine Clearance 152.34 ml/min; Uric Acid 5.2 mg/dL (2.6-6.0)
--- NOTE | 2022-07-19 13:14 | OB.TRI.HP_ITS ---
HPI - General General Date of Admission: 07/17/22 Date of Service: 07/17/22 Chief Complaint: headache in HPI Narrative SONIA FOX, is a 26 F who presents w/ mild persistent SMILEY w/ twin , Maternal Data Information Final MAL: 08/17/22 Gestational age: 35 4/7 [facility] Medical History (Updated 07/19/22 @ 13:[address] Abigail Rivera MD) History of miscarriage Home Medications docusate sodium 100 mg capsule 100 mg PO DAILY PRN PRN Constipation 07/27/20 [History Last Taken Unknown] ferrous sulfate 325 mg (65 mg iron) tablet 325 mg PO DAILY 07/27/20 [History Last Taken Unknown] vits,calcium no.78-iron fumarate-folic acid 29 mg-1 mg tablet 1 tab PO DAILY 07/27/20 [History Last Taken Unknown] Allergy/AdvReac Type Severity Reaction Status Date / Time No Known Allergies Allergy Verified 07/17/22 16:57 Surgical History (Updated 07/28/20 @ 08:[address] Lily Hutchison, DO) History of tonsillectomy Social History Smoking Status: Never smoker History Elective abortions Hx Para 0 Spontaneous abortions Hx # Term Pregnancies Ectopic pregnancies Hx # Pregnancies Multiple births # of living children NST FHR Rate Baby A Baseline: 135 Variability:: Moderate Accelerations:: 15 x 15 Decelerations:: None NST Reactive:: Yes FHR Category:: Category I Uterine Activity:: irreg ctxs FHR Rate Baby B Baseline: 145 Variability:: Moderate Accelerations:: 15 x 15 Decelerations:: None NST Reactive:: Yes FHR Category:: Category I Assessment & Plan (1) 35 weeks gestation of : PLAN: NST is reactive. No evidence of labor, or preeclampsia. Headache is mild and not worsening. Discharged home with routine instructions and follow-up. Return as needed. (2) High risk multigravida: (3) Dichorionic diamniotic twin gestation: (4) Headache:
== END 2022-07-17 17:15 | disposition home or self-care (01) ==
LOC: WPOUT 15:10 → WP 15:10
PROVIDERS: Visit Provider Obstetrics & Gynecology
DX: O26.893 Other specified pregnancy related conditions, third trimester (principal); R51.9 Headache, unspecified; Z3A.35 35 weeks gestation of pregnancy; O30.043 Twin pregnancy, dichorionic/diamniotic, third trimester
CPT/HCPCS: 36415; 59025; 59050; 82565; 82570; 84156; 84450; 84460; 84550; 85027; 99218; G0378

== ENCOUNTER 2022-08-02 12:05 | Outpatient (CLI) | payer OTHER, SELFPAY ==
--- NOTE | 2022-08-08 09:01 | OB.TRI.HP_ITS ---
HPI - General HPI Narrative SONIA FOX, is a 26 F who [facility] Medical History (Updated 08/08/22 @ 09:[address] Abigail Rivera MD) Anemia History of miscarriage macrosomia Home Medications ferrous sulfate 325 mg (65 mg iron) tablet 325 mg PO DAILY 07/27/20 [History Last Taken 08/01/22 10:00] vits,calcium no.78-iron fumarate-folic acid 29 mg-1 mg tablet 1 tab PO DAILY 07/27/20 [History Last Taken 08/02/22 10:00] oxycodone 5 mg tablet 5 - 10 mg PO Q4H PRN PRN Pain Score 4-10 5 days #14 tabs 08/04/22 [Rx Last Taken Unknown] Allergy/AdvReac Type Severity Reaction Status Date / Time No Known Allergies Allergy Verified 07/17/22 16:57 Surgical History (Updated 08/03/22 @ 21:[address] Lily Hutchison, DO) History of tonsillectomy Previous section Social History Smoking Status: Never smoker History Elective abortions Hx Para 1 Spontaneous abortions Hx # Term Pregnancies Ectopic pregnancies Hx # Pregnancies Multiple births # of living children Assessment & Plan (1) Dichorionic diamniotic twin gestation: PLAN: Patient stopped by labor and delivery for cervical exam. Declined any other monitoring. Return for scheduled the next day. (2) 37 weeks gestation of :
== END 2022-08-02 12:15 | disposition home or self-care (01) ==
LOC: WPOUT 12:11 → WP 12:11
PROVIDERS: Visit Provider Obstetrics & Gynecology
DX: O30.049 Twin pregnancy, dichorionic/diamniotic, unspecified trimester (principal); Z3A.37 37 weeks gestation of pregnancy
CPT/HCPCS: 99218; G0378

== ENCOUNTER 2022-08-03 09:15 | Inpatient (IN) | payer OTHER, SELFPAY ==
[2022-08-03] VITALS (21 sets, daily range): BP systolic 96–130; BP diastolic 41–85; PULSE 62–115; RESP 13–18; TEMP 36.2–36.9; O2SAT 95–98; BMI 40.8
[2022-08-03 09:54] LABS: Absolute Lymphocyte Count 1.46 X10^3/uL (0.83-4.51); Absolute Neutrophil Count 5.6 X10^3/uL (2.0-7.7); Basophil# 0.03 X10^3/uL; Basophil% 0.4 % (0-1); Eosinophil# 0.06 X10^3/uL; Eosinophils% 0.8 % (0-5); Hematocrit 37.9 % (37-47); Lymphocyte # 1.46 X10^3/ul (0.83-4.51); Mean Corp Hgb Conc 31.7 g/dL (32-36); Mean Corpuscular Hgb 26.6 pg (27.0-32.0); Monocyte# 0.49 X10^3/uL; Monocyte% 6.4 % (0-10); NRBC Flagged by Analyzer 0.3 % (0-5); Neutrophil # 5.61 X10^3/uL (2.7-7.7); Neutrophil % 72.9 % (47-70); POSITIVE MORPHOLOGY YES; Platelet Count 135 K/mm3 (150-450); RBC Distribution Width CV 22.9 % (11.6-14.6); RBC Distribution Width SD 68.8 fl (35.1-43.9); Red Blood Count 4.51 M/mm3 (4.2-5.4); White Blood Count 7.7 K/mm3 (4.4-11.0)
[2022-08-03] MEDS: Lactated Ringers 1,000 ML 999 ML IV ×2 (09:54→16:53)
[2022-08-03] MEDS: Acetaminophen 500 MG Tablet 1000 MG PO ×2 (10:01→17:44)
[2022-08-03 10:06] LABS: Differential Indicated SCAN CRITERIA MET
[2022-08-03] MEDS: Lactated Ringers 1,000 ML 150 ML IV (10:48)
[2022-08-03 11:10] LABS: Anisocytosis 1+
[2022-08-03 11:11] LABS: Ovalocyte RARE
[2022-08-03 11:12] LABS: Polychromasia RARE
[2022-08-03] MEDS: Sodium Citrate/Citric Acid 30 ML UDC PO (11:45)
--- NOTE | 2022-08-03 13:07 | PCM.HP.BLA ---
History and Physical Date of Admission: 08/03/22 DATE OF SERVICE: July 21, 2022 ? PROBLEM: repeat section, di/di twin ? PAST SURGICAL HISTORY: PAST SURGICAL HISTORYExpand by Default PAST SURGICAL HISTORY Procedure Laterality Date ? DELIVERY ONLY ? 07/28/2020 ? right cervical extension ? REFRACTIVE SURGERY OD (RIGHT EYE) Bilateral 03/2021 ? corrective vision ? TONSILLECTOMY HX ? PAST MEDICAL HISTORY: PAST MEDICAL HISTORYExpand by Default PAST MEDICAL HISTORY Diagnosis Date ? Anemia ? ? History of miscarriage ? ? ? SUBJECTIVE: Doing well. See quick note ? SOCIAL HISTORY: SOCIAL HISTORYExpand by Default Social History ? Tobacco Use ? Smoking status: Never ? Smokeless tobacco: Never Vaping Use ? Vaping Use: Never used Substance Use Topics ? Alcohol use: Not Currently ? Drug use: Never ? ? ALLERGIESExpand by Default ALLERGIES No Known Allergies ? Current Outpatient Medications on File Prior to Visit Medication Sig ? famotidine (PEPCID) 20 mg tablet Take 1 tablet by mouth twice daily. ? docusate sodium (STOOL SOFTENER ORAL) Take by mouth. ? aspirin (ASPIR-81 ORAL) ? ? FERROUS SULFATE ORAL Take by mouth. ? ondansetron (ZOFRAN) 4 mg tablet Take 1 tablet by mouth every 8 hours as needed for nausea/vomiting. ? Hltousrq-Nf-Kza-Fe-FA ( VITAMIN) tab Take 1 tablet by mouth. Gummy ? ? No current facility-administered medications on file prior to visit. ? OBJECTIVE: ? VITALS: BP 110/78 Wt 287 lb (130.2 kg) LMP 11/10/2021 BMI 39.52 kg/m? ? HEENT: Normocephalic, atraumatic. ? SKIN: No lesions. ? CHEST: No increased resp effort.. ? HEART: Regular rate. ? ABDOMEN: Gravid. ? LOWER EXTREMITIES: +1 pitting edema of LE bilaterally. ? ? ? ASSESSMENT: repeat section. Di/di twin ? PLAN: 1) Discussed repeat section. The rationale for the proposed surgery was discussed in addition to risks, benefits, and alternatives. General pre- and post-operative care was reviewed. Questions were answered. After discussion, the patient indicated a desire to proceed with the planned surgery. ? Lily Hutchison, DO Assessment & Plan Assessment/Plan (1) 38 weeks gestation of : (2) High risk multigravida: (3) Dichorionic diamniotic twin gestation: (4) History of section: (5) Anemia affecting : (6) Obesity affecting :
--- NOTE | 2022-08-03 13:11 | PCM.OPRPT ---
Problems Associated Problem List Diagnoses (1) 38 weeks gestation of : (2) History of section: (3) Dichorionic diamniotic twin gestation: (4) High risk multigravida: (5) Obesity affecting : Report of Operation Date of Procedure: 08/03/22 Pre-Operative Diagnosis: 38 week gestation, di di twin , history prior section Post-Operative Diagnosis: As above Surgery/Procedure Performed:: RLTCS via pfannenstiel incision Description of Surgical Findings:: Minimal scar tissue present with some bladder adhesions, and adhesions around right fallopian tube. Normal appearing uterus and bilateral adnexa otherwise. Clear fluid x 2. Vigorous VMI delivered first in vertex presentation, Apgars 8 and 8. Vigorous VFI delivered second in vertex presentation, Apgars 8 and 9. Normal appearing placenta x 2. Surgeon: Lily Hutchison project development leader: Alayna PRADHAN Type of Anesthesia: Spinal Special Medications: None Specimen's removed: Placenta x 2 Drains: Andrea Estimated Blood Loss (mL): 900 Fluids Replaced: 1300 Description of Procedure: The patient was taken to the operating room where spinal anesthesia was found to be adequate. She was prepped and draped in the dorsal position with a leftward tilt. A Pfannenstiel skin incision was made using the scalpel and this was carried down to the underlying layer of fascia. The fascia was incised in the midline and extended laterally using Christie scissors. The fascia was dissected off of the rectus muscles. The rectus muscles were in the midline. The peritoneum was entered bluntly with good visualization of the bladder. The peritoneal incision was extended bluntly. A low transverse incision was made on the uterus with the scalpel, and the uterine incision was extended bluntly with traction cephalad and caudad. Membranes for baby A were ruptured for clear fluid. The head of baby A was flexed during delivery, and baby was delivered easily in vertex presentation through the hysterotomy without any force or delay. A vigorous viable male was delivered, and the cord was clamped and cut after a delay. The viable male was handed off to the awaiting nursery staff. Membranes for baby B were then ruptured for clear fluid. The head was flexed and a vigorous viable female infant was delivered atraumatically, and without any force or delay through the hysterotomy. The cord was clamped and cut after delay. The viable female was handed off to the awaiting nursery staff. The placentas were removed with manual extraction. Cord gases were sent. The uterus was exteriorized. The uterus was cleared of all clot and debris. Uterine incision was closed with 1-0 Vicryl in a running locked fashion. A lower uterine segment subserosal hematoma was noted to be about 3 x 2 cm in size. Pressure was applied for several minutes. The hematoma was noted to not be expanding. There were minimal adhesions around the right fallopian tube, and the adnexa were otherwise normal-appearing. The uterus was placed back into the abdomen. The hysterotomy was again inspected and noted to be hemostatic. The hematoma was inspected and noted to be stable in size. Felicia was placed over the hysterotomy and lower uterine segment. The peritoneum was closed with 3-0 Vicryl in a running fashion. The rectus muscles were hemostatic. The fascia was closed with strata fix in a running fashion. The subcutaneous space was irrigated and made hemostatic with the Bovie cautery. Subcutaneous space was reapproximated 3-0 Vicryl. The skin was closed with 4 Monocryl subcuticular fashion. A silver dressing was placed. Instrument, sponge, needle counts were correct and the patient was taken to the recovery room in stable condition. Grafts/Implants Used: None Procedure Start Time: 11:50 Complications None Admit VTE Documentation VTE Present on Admission: No VTE Mechan Device Prophylaxis: SCD's
[2022-08-03] MEDS: Oxytocin 15 Units/NS 250ml 15 UNITS/250 ML IV.SOLN 83 UNITS IV (13:20)
[2022-08-03] MEDS: Ketorolac 30 MG/ML Syringe IV (13:45)
[2022-08-03] MEDS: Ondansetron 4 MG/2 ML Vial IV ×3 (13:45→22:46)
[2022-08-03] MEDS: Methylergonovine 0.2 MG/ML Ampul IM (14:20)
--- NOTE | 2022-08-03 14:22 | NUR.TO.PHY ---
[address] farris notified of oozing with each fundal check Moderate amount and pts c/o vertigo, dizziness, and spinning- pt request meclizine- ordered and ok to give methergine d/t oozing
[2022-08-03] MEDS: Meclizine HCl 25 MG Tablet PO ×2 (14:50→21:17)
[2022-08-03] MEDS: proCHLORPERazine 10 MG/2 ML Vial IV (15:36)
[2022-08-03] MEDS: 0.9% Saline Lock 10 ML Syringe IV ×2 (15:43→15:48)
[2022-08-03] MEDS: Lactated Ringers 1,000 ML 100 ML IV (16:37)
--- NOTE | 2022-08-03 16:49 | NURSING ---
[address] to dr farris office notified of decrease urine output d/t vomiting 6-8 times since 13:30- pt unable to tolerate any po fluids and vomits nearly every time she lifts her head of the pillow
--- NOTE | 2022-08-03 16:50 | NURSING ---
0168 dr farris returned call orders received
--- NOTE | 2022-08-03 18:12 | NURSING ---
1804 dr farris on unit notified of pts c/o gas pain in under shoulder and hypoactive bowel sounds; pt has not vomitted since 1529- pt still alittle dizzy and sl nauseated- pt tried some crackers and water and has kept them down
--- NOTE | 2022-08-03 19:10 | NURSING ---
pt had another emesis
--- NOTE | 2022-08-03 20:57 | PCM.PN.BLA ---
Progress Note Pt with N/V post op. At bedside to check on pt. She reports she feels the room is spinning at times, and then gets nausea and vomiting. No lightheadedness and dizziness at rest. If she moves her head in certain ways, or if she looks at the ceiling, she says she feels dizzy and gets nauseous. Pain is well controlled. She denies CP, SOB, leg pain. Lochia normal. Only grey small amounts of PO. Andrea in place. Physical Exam Const alert and no apparent distress General Appearance: comfortable HEENT normocephalic Resp normal respiratory effort GI soft to palpation and non-distended GI Narrative: ATTP, FF, non acute Assessment & Plan Assessment/Plan (1) Delivery by section: PLAN: Having post op N/V. Suspect secondary to anesthesia given her symptoms. Otherwise she is doing well and abdomen is non acute. UOP is improving and 37 cc/hr over last 2 hours. Urine is still a little concentrated but clearing after fluid bolus. Will give an additional 1 L fluid bolus. Vitals signs are stable. Continue to closely monitor and will reassess in AM unless there are changes overnight. Suspect improvement in N/V given time.
--- NOTE | 2022-08-03 21:48 | NURSING ---
this RN spoke to provider on the unit about pt urine output and nausea. pt urine output does not meet protocol to receive Toradol. Dr. Hutchison said to hold Toradol and reassess urine output 6 hours after last output. catheter was last emptied at 1900 by Geoff BLACKWELL. Pt states she is experiencing vertigo while lying in bed and speaking. Provider said not to get patient up tonight, she ordered Lovenox for 0100 and the pt has on her knee-high SCD's. will assess pt throughout the night to see if she is well enough to try to get to the side of the bed and will try to get pt up and ambulating in the morning. if pt is unable to tolerate PO liquids and urine output is not 30 mL/hr, provider gave verbal order to run a 1 L bolus.
[2022-08-04] VITALS (8 sets, daily range): BP systolic 105–125; BP diastolic 62–77; PULSE 67–76; RESP 14–18; TEMP 36.2–36.6; O2SAT 96–99
[2022-08-04] MEDS: Ketorolac 30 MG/ML Syringe IV ×3 (00:42→13:37)
[2022-08-04] MEDS: Acetaminophen 500 MG Tablet 1000 MG PO ×4 (00:43→18:51)
[2022-08-04] MEDS: Enoxaparin 40 MG/0.4 ML Syringe SC (01:02)
--- NOTE | 2022-08-04 02:40 | NURSING ---
pt eating crackers and jello. states she is starting to feel like she is able to tolerate foods and liquids PO.
[2022-08-04] MEDS: Ondansetron 4 MG/2 ML Vial IV (03:00)
[2022-08-04] MEDS: Lactated Ringers 1,000 ML 100 ML IV (03:27)
[2022-08-04 05:10] LABS: Hematocrit 30.9 % (37-47); Hemoglobin 9.9 g/dL (12.0-15.0); Mean Corpuscular Hgb 27.2 pg (27.0-32.0); Mean Corpuscular Volume 84.9 fL (81-99); POSITIVE MORPHOLOGY YES; Platelet Count 120 K/mm3 (150-450); RBC Distribution Width CV 22.4 % (11.6-14.6); RBC Distribution Width SD 68.4 fl (35.1-43.9); Red Blood Count 3.64 M/mm3 (4.2-5.4); White Blood Count 9.8 K/mm3 (4.4-11.0)
[2022-08-04 05:20] LABS: Scan Indicated on CBC? Y/N YES- FLAGS NOTED
[2022-08-04 05:39] LABS: Differential Comment SCANNED
--- NOTE | 2022-08-04 09:08 | PCM.DC.SUM ---
Providers Date of Admission: 08/03/22 Primary Care Physician: Yesi Primary Care Phys Reason For Visit: REPEAT C SECTION/CSECTION DELIVERY TWINS Diagnosis Discharge Diagnosis (1) Delivery by section: Status: Acute (2) Obesity affecting : Status: Acute Code(s): O99.210 - Obesity complicating , unspecified trimester (3) Anemia affecting : Status: Acute Code(s): O99.019 - Anemia complicating , unspecified trimester (4) Dichorionic diamniotic twin gestation: Status: Acute Code(s): O30.049 - Twin , dichorionic/diamniotic, unspecified trimester Medications at Discharge Home Medications ferrous sulfate 325 mg (65 mg iron) tablet 325 mg PO DAILY 07/27/20 vits,calcium no.78-iron fumarate-folic acid 29 mg-1 mg tablet 1 tab PO DAILY 07/27/20 Hospital Course Operations section Summary of Care Provided Hospital Course: Patient here for scheduled repeat section. Hospital course was uneventful. Physical Exam Narrative Patient seen at bedside. Sitting in chair . Feeling much better today. No nausea, emesis since last night. Able to eat light food and keep liquids down. Urine output appropriate. Passing flatus. Dressing is dry and intact. Lochia decreasing. Pain controlled with PO medications. Denies headache, dizziness, SOB or CP. twins with no support. May desire discharge home later tonight. Const alert and no apparent distress General Appearance: cooperative and comfortable Exam Limitations: no limitations HEENT normocephalic Eyes General Eye: normal appearance of both eyes Neck full ROM General: normal visual inspection Chest Chest: symmetrical chest wall rise Resp normal respiratory effort and normal air movement Effort and Inspection: symmetric chest movement Auscultation: clear to auscultation bilaterally Cardio regular rate and regular rhythm GI normal to inspection, nondistended, normoactive bowel sounds Back/Spine normal ROM Extremity full ROM and no calf tenderness General Extremity: normal exam except as noted Skin no rashes or lesions noted Neuro CN's II-XII intact bilaterally Psych mental status grossly normal Weight / BMI Weight Weight: 293 lb Body Mass Index (BMI) 40.8 ABG / Lab / Microbiology Data Result Diagrams: 08/04/22 04:54 Laboratory: Laboratory Results - last 24 hr 08/03/22 09:37: WBC 7.7, RBC 4.51, Hgb 12.0, Hct 37.9, MCV 84.0, MCH 26.6 L, MCHC 31.7 L, RDW Std Deviation 68.8 H, RDW Coeff of Tawana 22.9 H, Plt Count 135 L, Immature Gran % (Auto) 0.500, Neut % (Auto) 72.9 H, Lymph % (Auto) 19.0, [place] % (Auto) 6.4, Eos % (Auto) 0.8, Baso % (Auto) 0.4, Absolute Neuts (auto) 5.6, Absolute Lymphs (auto) 1.46, Nucleated RBC % 0.3, Polychromasia RARE, Anisocytosis 1+, Ovalocytes RARE 08/03/22 09:37: Blood Type A POSITIVE, Antibody Screen NEGATIVE 08/04/22 04:54: WBC 9.8, RBC 3.64 L, Hgb 9.9 L, Hct 30.9 L, MCV 84.9, MCH 27.2, MCHC 32.0, RDW Std Deviation 68.4 H, RDW Coeff of Tawana 22.4 H, Plt Count 120 L, Differential Comment SCANNED D/C Instructions Discharge Diet: No restrictions Discharge Activity: May Not Drive (2 weeks) and May Shower May resume sexual activity in: 6-8 weeks Weight Bearing Status: Weight bearing as tolerated Call your doctor if your incision/area has: Continuous Slow Oozing, Sudden Increased Bleeding, Increased Pain/ Swelling, Increased Redness, Foul Smelling Discharge and Swelling at the incision site Call your doctor if you observe: Fever of 101 or Higher, Numbness or Tingling, Using more than 1 pad per hour, Shortness of breath, Dizziness, Swelling in the ankles, Chest pain, Increased palpitations (irregular heartbeat), Calf discomfort and Uncontrolled pain Change Dressing in: leave in place till F/U Remove Dressing in: leave in place till F/U Please Follow Up With: Lily Hutchison DO When: 1 week in office Meaningful Use Info Meaningful Use Diagnoses (Choose all that apply): None applicable Discharge Plan Admission Admit Date/Time: 08/03/22 09:15 Primary Reason for Your Visit: Repeat section Attending Provider: Lily Hutchison Primary Care Provider: Care Physician,No Primary Discharge Orders/Prescriptions Prescriptions: Continued ferrous sulfate 325 MG tablet 325 mg PO DAILY vit,[id number] 1 TABLET tablet 1 tab PO DAILY Discontinued famotidine [Pepcid] 20 mg Tablet 20 mg PO DAILY aspirin [Baby Aspirin] 81 mg Tablet,Chewable 81 mg PO DAILY Referrals / Follow Up: Care Physician,No Primary [Primary Care Provider] - Disposition Disposition (needs filled in before D/C Order can be placed): Home, Self Care
[2022-08-04] MEDS: 0.9% Saline Lock 10 ML Syringe IV ×2 (09:30→13:38)
[2022-08-04] MEDS: Senna/Docusate Sodium 1 Tablet PO (13:38)
[2022-08-04] MEDS: Ibuprofen 600 MG Tablet PO (22:49)
[2022-08-05] MEDS: Enoxaparin 40 MG/0.4 ML Syringe SC (01:36)
[2022-08-05] MEDS: Acetaminophen 500 MG Tablet 1000 MG PO ×2 (01:36→06:53)
[2022-08-05 01:40] VITALS: BP 121/68; PULSE 72; RESP 18
[2022-08-05] MEDS: Ibuprofen 600 MG Tablet PO (04:18)
[2022-08-05 07:40] VITALS: BP 136/89; PULSE 60; RESP 15; TEMP 36.1; O2SAT 99
== END 2022-08-05 08:47 | disposition home or self-care (01) | DRG 807 ==
PROVIDERS: Admitting Provider Obstetrics & Gynecology; Visit Provider Obstetrics & Gynecology
PROC: 10E0XZZ Delivery of Products of Conception, External Approach (ICD-10-PCS; CPT 59514; principal; 2022-08-03 11:45)
DX: O30.041 Twin pregnancy, dichorionic/diamniotic, first trimester (principal); Z37.2 Twins, both liveborn; O34.219 Maternal care for unspecified type scar from previous cesarean delivery; D25.2 Subserosal leiomyoma of uterus; Z3A.38 38 weeks gestation of pregnancy; O99.893 Other specified diseases and conditions complicating puerperium; O99.013 Anemia complicating pregnancy, third trimester
CPT/HCPCS: 59050; 85025; 85027; 86850; 86900; 86901; 99218; 99251; J7120; A4216; G0378; G0463; J2405

== ENCOUNTER → 2023-07-31 | Outpatient (CLI) | payer OTHER, SELFPAY ==
[2023-07-31 12:12] LABS: Absolute Lymphocyte Count 1.77 X10^3/uL (0.83-4.51); Absolute Neutrophil Count 2.8 X10^3/uL (2.0-7.7); Basophil# 0.04 X10^3/uL; Basophil% 0.8 % (0-1); Eosinophil# 0.06 X10^3/uL; Eosinophils% 1.2 % (0-5); Hematocrit 41.2 % (37-47); Hemoglobin 13.1 g/dL (12.0-15.0); Lymphocyte # 1.77 X10^3/ul (0.83-4.51); Lymphocyte % 35.6 % (19-41); Mean Corp Hgb Conc 31.8 g/dL (32-36); Mean Corpuscular Hgb 28.1 pg (27.0-32.0); Mean Corpuscular Volume 88.2 fL (81-99); Mean Platelet Vol. 12.4 fl (6.2-12.0); Monocyte# 0.28 X10^3/uL; Monocyte% 5.6 % (0-10); NRBC Flagged by Analyzer 0 % (0-5); Neutrophil # 2.81 X10^3/uL (2.7-7.7); Neutrophil % 56.6 % (47-70); Platelet Count 254 K/mm3 (150-450); RBC Distribution Width CV 13.1 % (11.6-14.6); RBC Distribution Width SD 42.3 fl (35.1-43.9); Red Blood Count 4.67 M/mm3 (4.2-5.4)
[2023-07-31 12:49] LABS: ALB/GLOB Ratio 1.2 RATIO (0.9-2.4); AST(SGOT) 15 U/L (15-37); Alanine Aminotransfer ALT/SGPT 22 U/L (13-56); Alkaline Phosphatase 93 U/L (45-117); Anion Gap 6 (5-15); BUN 12 mg/dL (7-18); BUN/Creat Ratio 16.1 RATIO (10-20); Calcium,Total 8.8 mg/dL (8.5-10.1); Chloride 108 mmol/L (98-107); Cholesterol 178 mg/dL (200); Creatinine, Serum 0.75 mg/dL (0.55-1.02); EST Glomerular Filtration Rate 98 mL/min (>60); Est Glom Filt Rate - Afr Amer 118 mL/min (>60); Globulin 3.4 g/dL (2.2-4.2); Glucose 92 mg/dL (74-106); High Density Lipoprotein 61 mg/dL; Potassium 3.9 mmol/L (3.5-5.1); Protein, Total 7.4 g/dL (6.4-8.2); Sodium Level 141 mmol/L (136-145); Triglycerides 65 mg/dL; Very Low Density Lipoprotein 13 mg/dL (5-40)
== END | disposition home or self-care (01) ==
LOC: BFHLAB 09:55
PROVIDERS: PCP Nurse Practitioner Family; Referring Provider Nurse Practitioner Family; Visit Provider Nurse Practitioner Family
DX: Z00.01 Encounter for general adult medical examination with abnormal findings (principal)
CPT/HCPCS: 36415; 80053; 80061; 85025

== ENCOUNTER → 2023-09-04 | Outpatient (CLI) | payer OTHER, SELFPAY ==
--- NOTE | 2023-09-04 08:57 | VDLE_ITS ---
Reason For Study: Right leg pain RIGHT CFV is compressible, spontaneous, phasic, competent and demonstrates normal augmentation. FV is compressible, spontaneous, phasic, competent and demonstrates normal augmentation. POP V is compressible, spontaneous, phasic, competent and demonstrates normal augmentation. T/P Trunk is compressible. PTV is compressible. RT PerV is compressible. SFJ is INCOMPETENT and measures 0.53 x 0.67 cm. GSV proximal thigh measures 0.34 x 0.34 cm. GSV above knee is competent. GSV at knee measures 0.25 x 0.24 cm. GSV below knee is INCOMPETENT for greater than 0.5 seconds. SSV at junction is INCOMPETENT for greater than 0.5 seconds and measures 0.94 x 0.93 cm. Varicose vein clusters noted coming off SSV. Vein of Giacomini is INCOMPETENT for greater than 0.5 seconds and measures 0.33 x 0.35 cm. Procedure This is a venous duplex using B-mode, color flow and spectral Doppler. Exam performed in department. Patient was scanned in reverse Trendelenburg position during reflux assessment. VL/Venous Duplex US, Unilateral Interpretation Summary Deep veins of the right lower extremity are patent and compressible segmentally . There is no evidence of right lower extremity deep vein thrombosis. The right great sapheno us vein appears patent and compressible segmentally. Positive for reflux for in the right saphenfemoral junction, great saphenous ve in below the knee, small saphenous vein, and the Vein of Giacomini Ordering Physician: Roz Scales Referring Physician: Sloane Nguyen Performed By: Anastasiia Triana RVT
== END | disposition home or self-care (01) ==
LOC: CVS 08:56
PROVIDERS: PCP Nurse Practitioner Family; Referring Provider Physician Assistant; Visit Provider Physician Assistant
DX: I83.90 Asymptomatic varicose veins of unspecified lower extremity (principal)
CPT/HCPCS: 93971

== ENCOUNTER → 2024-03-05 | Outpatient (CLI) | payer OTHER, SELFPAY ==
--- NOTE | 2024-03-05 09:45 | RAD_ITS ---
STUDY: X-RAY - LUMBAR SPINE REASON FOR EXAM: Female, 28 years old. Lumbago with right sciatica. TECHNIQUE: 5 view(s) of the lumbar spine were obtained. COMPARISON: None FINDINGS: Normal lumbar lordosis. There is no substantial scoliosis. There is a normal alignment of the vertebrae. Normal vertebral bodies and endplates. Normal disc space heights. The soft tissue structures are normal. RAD/L/S Spine Min 4 Views IMPRESSION: Normal x-ray examination of the lumbar spine. Electronically Signed: Christiano Gordon MD at 15:53 EDT ,
== END | disposition home or self-care (01) ==
LOC: LAB 09:40
PROVIDERS: PCP Nurse Practitioner Family; Referring Provider Nurse Practitioner Family; Visit Provider Nurse Practitioner Family
DX: M54.41 Lumbago with sciatica, right side (principal)
CPT/HCPCS: 72110

== ENCOUNTER 2024-03-17 17:00 | Outpatient (RCR) | payer OTHER, SELFPAY ==
--- NOTE | 2024-03-13 07:57 | HP.PTEVAL ---
Patient's Visit Information Visit Information Visit Information: SONIA FOX is a 28 year old F referred to Physical Therapy by ALEJANDRO Wahl with a diagnosis of Back Pain. Date of Evaluation: 03/13/24 Physical Therapist: Marzena Guerin DPT Visit Plan Frequency: 2x /Week Duration: 4 Weeks Plan: Extension bias, core strength/stabilization- US/TENS modality of choice Postural education, prone prop, standing extensions, seated TA contractions Subjective Subjective: End of December- they have a camper- foam mattress- slept on it for a week- right hip pain- back pain- and it has been bothering her since- put a firm mattress in and since then its gotten better but its not gone. She has tried massage and chiropractor 5x (table bent, clicker). Some days almost no pain- stiffness when she wakes up. The pain is in the right buttocks and down the right leg- dull and achy pain across the low back. When she bends back she has a pinch. By the end of the day she can bend down and roller picker her kids toys. Worst: 11/20 Agg: not moving, sitting in the same position too long. She does not take any pain medication. The steroid did not do anything for it. Eases: Aleve 2 pills 2x a day. The pain down her leg comes and goes. The pain down her leg is aggravated by bending forwards and sitting in the car. Sleep: normally a belly sleeper- side with a body pillow. She feels that she 75% in the healing phase. She has had previous sciatica pain when she was . 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 No loss or change in bowel or bladder. No N/T in the LE. She did have x-rays but no MRI. Exercise: walking PMHx/Meds: see list in chart. Objective Objective: Posture: guarded- forward head, rounded shoulders- can correct but does not maintain throughout tx session Gait: no deviation noted HR/TR: good SLS: 30 sec no LOB or instability noted ROM: Lumbar: Flexion: hands to mid thigh- pain and hesitant, Extn: limited by 25% reports pinching, SB: WNL reports discomfort left, Rotation: WNL reports discomfort left LE: WNL bilateral Sensation/Reflex: WNL bilateral LE Strength: core: fair minus, Hip: Flexion: 4/5, Extn: 4/5 Abd: 4/5, Add: 4+/5, IR/ER: 4/5, Knee: 5/5 Ankle: 5/5 Flex: HS: severe, Gastroc: moderate Special Test: Prone extn: centralized s/s Standing extn: centralized within small ranges flexion: peripheralized Palpation: tender to PA glides L4-L5 and paraspinals of L3-S1 Special Tests L/S Slump test left side: Negative L/S Slump test right side: Negative L/S Left Straight Leg Raise: Negative L/S Right Straight Leg Raise: Negative Balance/Special Test Scores Oswestry Low Back Score: 5 Goals Goal 1:: Patient will be I with HEP and progression Goal Time Frame: 4-6 Weeks Goal 2:: Patient will report no dural signs for 1 week Goal Time Frame: 4-6 Weeks Goal 3:: Patient will maintain proper posture t/o tx to demo increased core s/s Goal Time Frame: 4-6 Weeks Goal 4:: Patient will report 80% improvement Goal Time Frame: 4-6 Weeks Rehabilitation Potential Physical Therapy Diagnosis: Patient presents with hypomobility- she has decreased lumbar ROM, LE and core strength/stabilization, flex and muscular endurance leading to increased pain with ADL's and dural s/s Rehabilitation Potential: Good Anticipated Interventions Patient/Client Instruction: Educate patient on: Benefits of Fitness Program Therapeutic Exercise to Include: Strength training, Endurance training, Balance training, Coordination, Agility training, Body mechanics, Postural training, Flexibilty training, Gait and locomotor training, Neuromotor development, Dynamic Lumbar Stabilization and Scapular Strength/Stabilization For the Purpose of:: To improve muscle performance and motor function TENS: Yes Cryotherapy (ice pack, ice massage): Yes Thermo therapy (hot pack): Yes Ultrasound (thermal/non thermal): Yes Text: Thank you for the opportunity to evaluate your patient. For Medicare and Medicare HMO plans, please review the plan of care and approve it. It will need to be FAXED BACK to us at [phone] for Medicare purposes. For Medicare only, by signing this I certify the plan of care. Please let me know if there are questions or concerns regarding this plan of care. Physician Signature: Date:
== END 2024-03-17 19:00 | disposition home or self-care (01) ==
LOC: PT 17:00
PROVIDERS: PCP Nurse Practitioner Family; Referring Provider Nurse Practitioner Family; Visit Provider Nurse Practitioner Family
DX: M54.41 Lumbago with sciatica, right side (principal)
CPT/HCPCS: 97110; 97162; 97530

== ENCOUNTER → 2025-03-20 | Outpatient (CLI) | payer OTHER, SELFPAY ==
[2025-03-20 09:25] LABS: Hematocrit 40.8 % (37-47); Hemoglobin 13.2 g/dL (12.0-15.0); Immature Granulocytes Count 0.020 X10^3/uL (0.0-0.0); Mean Corp Hgb Conc 32.4 g/dL (32-36); Mean Corpuscular Volume 88.3 fL (81-99); Mean Platelet Vol. 11.9 fl (6.2-12.0); NRBC Flagged by Analyzer 0 % (0-5); Platelet Count 236 K/mm3 (150-450); RBC Distribution Width CV 13.2 % (11.6-14.6); RBC Distribution Width SD 43.0 fl (35.1-43.9); Red Blood Count 4.62 M/mm3 (4.2-5.4); White Blood Count 6.5 K/mm3 (4.4-11.0)
[2025-03-20 10:33] LABS: AST(SGOT) 21 U/L (<=31); Alanine Aminotransfer ALT/SGPT 21 U/L (<=34); Albumin, Serum 4.3 g/dL (3.5-5.0); Alkaline Phosphatase 57 U/L (35-104); Anion Gap 11 (5-15); BUN 13 mg/dL (4-19); BUN/Creat Ratio 15.8 RATIO (10-20); Calcium,Total 9.3 mg/dL (7.6-11.0); Carbon Dioxide 22.2 mmol/L (21.0-32.0); Chloride 104 mmol/L (98-108); Ferritin 20 ng/mL (22-378); Globulin 2.6 g/dL (2.2-4.2); Glucose 100 mg/dL (70-99); Iron 122 ug/dL (50-170); Potassium 4.3 mmol/L (3.3-5.1); Vitamin B12 592 pg/mL (180-914); Vitamin D,25 Hydroxy 31.7 ng/mL (30-100)
[2025-03-20 11:44] LABS: Cholesterol 150 mg/dL (<=200); Low Density Lipoprotein Calc. 74 mg/dL; Triglycerides 62 mg/dL; Very Low Density Lipoprotein 12 mg/dL (5-40); cholesterol:hdl ratio screen 2.35
== END | disposition home or self-care (01) ==
PROVIDERS: PCP Nurse Practitioner Family; Referring Provider Nurse Practitioner Family; Visit Provider Nurse Practitioner Family
DX: Z00.01 Encounter for general adult medical examination with abnormal findings (principal); R53.83 Other fatigue
CPT/HCPCS: 36415; 80053; 80061; 82306; 82607; 82728; 83540; 84439; 84443; 85025